=== PATIENT | male | born 1945 | race Caucasian/White ===

== ENCOUNTER 2023-12-09 09:45 | Outpatient (RCR) | payer MEDICARE, BC, SELFPAY ==
--- NOTE | 2023-11-07 15:00 | PT.OPEX ---
[facility] Start: 11/07/23 12:56 Freq: Status: Active Protocol: Document 11/07/23 12:56 CRP (Rec: 11/07/23 15:00 CRP [id number]) E-signed By Juan A Martinez PT Physical Therapy Outpatient Evaluation Insurance Information Recert Due Date 02/05/24 Insurance Name [employer] Medical Diagnosis Lumbar Degenerative Disc Disease Referring MD Dr Tamez Subjective Subjective Pt c/o tightness/stiffness at the R hip. Will be worse overnight. Pain can go into the anterior thigh pain and down to the calf. No numbness or tingling. About 4 weeks ago. Does feel like maybe initially his golf swing may have been too aggressive and this was a reason for his pain . The more he is inactive he will have increased pain/ stiffness. Does have a limp that does seem worse after prolonged sitting. Mornings are tough the first few moments in the morning. Has not found any specific activity that helps. Is doing yoga, biking, gardening, walking for exer. Repetitive bending does seem to aggravate it to some degree. Might take some Aleeve intermittently based on sxs. Pain Comments -06/18 Current Work Status Retired Objective Other/Pertinent Objective Trunk ROM: flex WNL, ext min dec, R SB min.mod dec with R hip pain, L SB Min dec, R rot WNL, L rot min.mod dec Hip ROM R WNL, L shows mild dec with flex and IR SLR: R side reproduction of sxs at about 35 deg but then released with higher ROM. L WNL MMT: Hip abduction 3+/5. All other testing WNL. lumbopelvic flexion 4-/5 Segmental testing: hypomob L3- 4 Functional Test Performed & Score LEFS 54 Assessment Assessment/Impression Pt presents to the clinic with c.o sxs into his R hip and thigh that appear to be radicular in nature. 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 With this the pt shows significant hip weakness and gait dysfunction. Skilled PT is necessary to incorporate ther ex, nm davon, manual therapy, ther act and pt education to decrease pain and improve functional mobility. Primary Functional Limitations Going sit to stand Sleeping Bending Gardening Plan of Care Rehabilitation Potential Excellent Physical Therapy Goals 1. Pt will be independent with HEP in 8 weeks. 2. Pt will sleep through the night without c.o pain in 10 weeks. 3. 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 Coordination/Communication With Referral Source Treatment Plan/Direct Interventions Joint Mobilization,Manual Therapy,Neuromuscular Re-ed, Self-Care/Home Management, Therapeutic Activities, Therapeutic Exercises Frequency/Duration 1-2x/wk for 12 weeks Patient Will Be Discharged From Therapy Completion of LTG(s),Skills Plateau,Independent w/HEP, Independently Progressing Evaluation Billing Untimed Code Treatment Minutes 40 Complexity Moderate Certification Information Initial Certification Date 11/07/23 Ending Certification Date 02/05/24 Provider Signature Required Yes Provider Signature Shows Agreement With POC & Medical Necessity Physician NPI Number Write NPI# Here Physician Comment/Change : Physician Signature & Date Requested Please Sign/Date Here
== END 2024-04-07 23:59 | disposition home or self-care (01) ==
PROVIDERS: PCP Family Medicine; Visit Provider Orthopaedic Surgery Sports Medicine
DX: M51.36 Other intervertebral disc degeneration, lumbar region (principal); Z51.89 Encounter for other specified aftercare
CPT/HCPCS: 97110; 97140; 97162; 97535

== ENCOUNTER 2024-02-22 14:07 | Emergency (ER) | payer MEDICARE, BC, SELFPAY ==
[2024-02-22 14:16] VITALS: BP 162/91; PULSE 65; RESP 16; TEMP 36.2; O2SAT 98; BMI 27.3
--- NOTE | 2024-02-22 14:26 | CRLHL7_ITS ---
For Patients: As a result of the Century Cures Act, medical imaging exams and procedure reports are released immediately into your electronic medical record. You may view this report before your referring provider. If you have questions, please contact your health care provider. INDICATION: Leg swelling. TECHNIQUE: Ultrasound venous duplex lower right extremity. Compression venous exam was performed using quiroz-scale, color Doppler, and spectral Doppler analysis. COMPARISON: None available. FINDINGS: Deep veins: Sonographic imaging demonstrates the right common femoral, deep femoral, superficial femoral, popliteal, posterior tibial, peroneal and the contralateral left common femoral veins to be fully compressible with normal color Doppler blood flow. Superficial veins: Visualized portions of the greater saphenous vein are fully compressible. IMPRESSION: No evidence of right lower extremity deep venous thrombosis. Dictated by Thao Pruett MD @ 02/22/2024 3:51:36 PM (Electronically Signed)
--- NOTE | 2024-02-22 14:47 | ED.GENADULT ---
HPI - General Adult General Chief complaint: Lower Extremity Swelling Stated complaint: possible blood clot Time Seen by Provider: 02/22/24 14:20 History of Present Illness HPI narrative: Patient is a 78-year-old gentleman who comes in today with swelling in his right leg. He recently had foot surgery with incision on the foot and ankle for hammertoes. This occurred approximately 10 days ago. Related no swelling until today and now is having swelling extending from the ankle to the knee with some mild bruising. No pain. He has no chest pain or shortness of breath no fevers no chills. Wounds are healing well. He is concerned that he may have a blood clot. Related Data Home Medications ?Medication ?Instructions ?Recorded ?Confirmed allopurinol 300 mg tablet 300 mg PO DAILY 11/04/23 11/04/23 amlodipine 5 mg tablet 5 mg PO DAILY 11/04/23 11/04/23 benazepril 20 mg tablet 20 mg PO DAILY 11/04/23 11/04/23 brimonidine 0.2 % eye drops drp ophthalmic (eye) 11/04/23 11/04/23 dorzolamide 22.3 mg-timolol 6.8 ophthalmic (eye) 11/04/23 11/04/23 mg/mL eye drops folic acid-vit B6-vit B12 2.5 1 tab PO DAILY 11/04/23 11/04/23 mg-25 mg-1 mg tablet (WesTab One) indapamide 2.5 mg tablet mg PO 11/04/23 11/04/23 latanoprost 0.005 % eye drops drp ophthalmic (eye) 11/04/23 11/04/23 Allergies Allergy/AdvReac Type Severity Reaction Status Date / Time No Known Drug Allergies Allergy Verified 02/22/24 14:20 Review of Systems Status of ROS: Reports: 10 or more systems reviewed and unremarkable except as noted in History and below [facility] Medical History Arthritis ?M19.90 - Unspecified osteoarthritis, unspecified site (ICD-10) Hypertension ?I10 - Essential (primary) hypertension (ICD-10) Hyperlipidemia ?E78.5 - Hyperlipidemia, unspecified (ICD-10) Gout ?M10.9 - Gout, unspecified (ICD-10) Surgical History Strabismus ?H50.9 - Unspecified strabismus (ICD-10) H/O inguinal hernia repair ?Z98.890 - Other specified postprocedural states (ICD-10) ?Z87.19 - Personal history of other diseases of the digestive system (ICD-10) History of tonsillectomy ?Z90.89 - Acquired absence of other organs (ICD-10) H/O hernia repair ?Z98.890 - Other specified postprocedural states (ICD-10) ?Z87.19 - Personal history of other diseases of the digestive system (ICD-10) Family History Father Diabetes Bladder cancer Parkinson disease Exam Narrative: Exam Narrative: EXAM GENERAL: Patient appears comfortable and well. EYES: No scleral icterus. LYMPH: No supraclavicular or cervical lymphadenopathy. SKIN: Visible skin seen during exam normal or with benign process only. EXT: Mild edema and ecchymosis in the right ankle and calf no other palpable abnormalities wounds healing well. HEART: Regular rate and rhythm with no murmurs, rubs, or gallops. LUNGS: Clear to auscultation bilaterally with no crackles or wheezes. ABD: Soft, non tender, non distended. PSYCH: Good eye contact, speech is not pressured. Const: Vital Signs, click to edit/add: Vital Signs - 24 hr 02/22/24 14:16 Temperature 97.1 F L Pulse Rate [Right Pulse Oximeter] 65 Respiratory Rate 16 Blood Pressure [Ri ght Upper Arm] 162/91 H Pulse Oximetry 98 Oxygen Delivery Me thod Room Air Course Course ED Course: Patient seen and examined. Duplex of the lower extremity is negative. Vital Signs Vital signs: Initial Vital Signs Temperature 97.1 F L 02/22/24 14:16 Temperature Source Temporal Artery Scan 02/22/24 14:16 Pulse Rate 65 02/22/24 14:16 Pulse Rhythm Regular 02/22/24 14:16 Pulse Strength 3+ Normal 02/22/24 14:16 Respiratory Rate 16 02/22/24 14:16 Blood Pressure 162/91 H 02/22/24 14:16 Blood Pressure Mean 114 H 02/22/24 14:16 Blood Pressure Position Sitting 02/22/24 14:16 Pulse Oximetry 98 02/22/24 14:16 Oxygen Delivery Method Room Air 02/22/24 14:16 Vital Signs Temperature 97.1 F L 02/22/24 14:16 Pulse Rate 65 02/22/24 14:16 Respiratory Rate 16 02/22/24 14:16 Blood Pressure 162/91 H 02/22/24 14:16 Pulse Oximetry 98 02/22/24 14:16 Oxygen Delivery Method Room Air 02/22/24 14:16 Temperature 97.1 F L 02/22/24 14:16 Pulse Rate 65 02/22/24 14:16 Respiratory Rate 16 02/22/24 14:16 Blood Pressure 162/91 H 02/22/24 14:16 Pulse Oximetry 98 02/22/24 14:16 Oxygen Delivery Method Room Air 02/22/24 14:16 Medical Decision Making MDM Narrative Medical decision making narrative: Patient is a 78-year-old gentleman who presents with swelling in his right leg following lower extremity surgery. Duplex is unremarkable. He is otherwise unremarkable and healing well. No think we need to make any changes at this time with the exception of more leg elevation. He will continue his outpatient treatment follow-up with his surgeon in 3 days as scheduled. Discharge Plan Discharge Clinical Impression: Swelling Patient Disposition: Home, Self-Care Condition: Stable Instructions: Leg Edema (ED) Additional Instructions: Continue current care Keep leg elevated Keep outpatient follow-up with primary/surgeon. Activity Level: No Restrictions Discharge Diet: Regular Prescriptions: No Action allopurinol 300 mg tablet 300 mg PO DAILY benazepril 20 mg tablet 20 mg PO DAILY brimonidine 0.2 % drops ophthalmic (eye) Patient Comments: [NO ORIGINAL SIG] latanoprost 0.005 % drops ophthalmic (eye) Patient Comments: [NO ORIGINAL SIG] dorzolamide-timolol 22.3-6.8 mg/mL drops ophthalmic (eye) Patient Comments: [NO ORIGINAL SIG] WesTab One 2.5-25-1 mg tablet 1 tab PO DAILY amlodipine 5 mg tablet 5 mg PO DAILY indapamide 2.5 mg tablet PO Follow Up/Referrals: Clare Altman MD [Primary Care Provider] - Stand Alone Forms: MyHealth Info Instructions
== END 2024-02-22 15:02 | disposition home or self-care (01) ==
LOC: ED 14:54
PROVIDERS: Emergency Provider Internal Medicine; PCP Family Medicine
DX: R60.9 Edema, unspecified (principal)
CPT/HCPCS: 93971; 99283; 99284

== ENCOUNTER 2024-04-16 14:45 | Outpatient (RCR) | payer MEDICARE, BC, SELFPAY | END 2024-04-17 08:09 | disposition home or self-care (01) | PROVIDERS: PCP Family Medicine; Visit Provider Orthopaedic Surgery | DX: M62.469 Contracture of muscle, unspecified lower leg (principal); Z48.89 Encounter for other specified surgical aftercare; Z98.890 Other specified postprocedural states; M62.81 Muscle weakness (generalized); R26.81 Unsteadiness on feet; R26.9 Unspecified abnormalities of gait and mobility; Z51.89 Encounter for other specified aftercare | CPT/HCPCS: 97110; 97112; 97140; 97161; 97162 ==